=== PATIENT | female | born 1990 | race Caucasian/White ===

== ENCOUNTER 2022-09-12 10:46 | Emergency (ER) | payer OTHER ==
[2022-09-12] MEDS ORDERED: Dexamethasone 10 MG/ML VIAL ONE (11:20)
== END 2022-09-12 12:08 | disposition home or self-care (01) ==
LOC: MADERS 10:46
DX: J06.9 Acute upper respiratory infection, unspecified (principal); Z87.891 Personal history of nicotine dependence
CPT/HCPCS: 87081; 87430; 96372; 99283; J1100